=== PATIENT | female | born 1990 | race African-American/Black ===

== ENCOUNTER 2021-06-18 08:27 | Emergency (ER) | payer SELFPAY ==
[2021-06-18] MEDS ORDERED: Lidocaine Viscous Sol 2% 15 ml UD Cup ONE (09:13)
[2021-06-18] MEDS ORDERED: Mag-Al Plus 1200 MG/1200 MG/120 MG/30 ML UDCUP ONE (09:13)
[2021-06-18 10:53] LABS: #Monocytes 0.2 10x3/uL (0.0-1.1); #Neutrophils 1.7 10x3/uL (1.5-8.4); %Basophils 0.6 % (0.0-2.0); %Eosinophils 0.6 % (0.0-6.0); %Lymphocytes 46.2 % (18.0-47.0); %Monocytes 6.4 % (0.0-10.0); %Neutrophils 46.2 % (40.0-75.0); Hemoglobin 11.5 g/dL (12.0-15.5); Mean Corpuscular HGB CONC 33.6 g/dL (32.0-36.0); Mean Corpuscular Hemoglobin 28.5 pg (27.0-33.0); Mean Corpuscular Volume 84.9 fl (81.6-98.3); Mean Platelet Volume 9.3 fl (7.4-10.4); Platelet Count 292 10x3/uL (150-450); RBC Distribution Width 12.1 % (11.5-14.5); Red Blood Cell (RBC) Count 4.03 10x6/uL (3.90-5.03); White Blood Cell (WBC) Count 3.6 10x3/uL (3.5-10.5)
[2021-06-18 11:11] LABS: ALT (SGPT) 15 U/L (8-55); AST (SGOT) 15 U/L (5-34); Albumin 3.7 g/dL (3.5-5.0); Alkaline Phosphatase 52 U/L (40-110); Anion Gap 11 mmol/L (10-20); BUN (Urea Nitrogen) 11 mg/dL (7.0-18.7); Bilirubin, Total 0.6 mg/dL (0.2-1.2); Calc. Creatinine Clearance 0 mL/min (70-130); Calcium 8.9 mg/dL (7.8-10.44); Carbon Dioxide 24 mmol/L (22-29); Chloride 106 mmol/L (98-107); Globulin 2.5 g/dL (2.4-3.5); Glucose 108 mg/dL (70-105); Protein, Total 6.2 g/dL (6.0-8.3); Sodium 137 mmol/L (136-145)
== END 2021-06-18 12:02 | disposition home or self-care (01) ==
LOC: CSHERS 08:27
DX: R07.89 Other chest pain (principal); E28.2 Polycystic ovarian syndrome
CPT/HCPCS: 71045; 80053; 83690; 84484; 85025; 93005

== ENCOUNTER 2021-09-26 17:20 | Emergency (ER) | payer SELFPAY ==
[2021-09-26] MEDS ORDERED: Ondansetron PF 4 MG/2 ML Vial ONE (18:26)
[2021-09-26 18:55] LABS: Anion Gap 13 mmol/L (10-20); BUN (Urea Nitrogen) 12 mg/dL (7.0-18.7); Calc. Creatinine Clearance 0 mL/min (70-130); Calcium 9.4 mg/dL (7.8-10.44); Carbon Dioxide 22 mmol/L (22-29); Chloride 104 mmol/L (98-107); Glucose 98 mg/dL (70-105); Sodium 135 mmol/L (136-145)
[2021-09-26 20:22] LABS: Bilirubin Neg (Negative); Blood, Urine Negative (Negative); Clarity Clear (Clear); Glucose, Urine (Dipstick) Normal (Negative); Ketone, Urine Negative (Negative); Leukocyte Negative (Negative); Nitrite Negative (Negative); Protein, Urine (Dipstick) Negative (Neg-Trace); Specific Gravity, Urine 1.015 (1.002-1.036); pH, Urine 6.5 (5.0-9.0)
[2021-09-26 20:25] LABS: Pregnancy Test - Urine (BHCG) Negative (Negative); Pregu Control Background? CLEAR/WHITE (CLR/WHITE); Pregu Control Bar Appear? YES (CONTROL BAR); Specific Gravity 1.015 (1.002-1.036)
[2021-09-27 21:58] LABS: SARS-CoV-2 PCR by NAA Not Detected (NotDetected)
== END 2021-09-26 20:54 | disposition home or self-care (01) ==
LOC: CSHERS 17:20
DX: E86.0 Dehydration (principal); R19.7 Diarrhea, unspecified; E28.2 Polycystic ovarian syndrome; Z20.822 Contact with and (suspected) exposure to COVID-19
CPT/HCPCS: 80048; 81003; 81025; 87804; 96374; J2405; U0003; U0005

== ENCOUNTER 2021-10-20 20:43 | Emergency (ER) | payer SELFPAY ==
[2021-10-20] MEDS ORDERED: Ketorolac Tromethamine 30 MG/ML VIAL ONE (22:27)
== END 2021-10-21 00:15 | disposition home or self-care (01) ==
LOC: CSHERS 20:43
DX: I82.611 Acute embolism and thrombosis of superficial veins of right upper extremity (principal)
CPT/HCPCS: 96372; J1885

== ENCOUNTER 2021-10-22 14:57 | Emergency (ER) | payer SELFPAY ==
[2021-10-22] MEDS ORDERED: Apixaban 5 MG TAB ONE (17:01)
== END 2021-10-22 17:00 | disposition home or self-care (01) ==
LOC: CSHERS 14:57
DX: I82.621 Acute embolism and thrombosis of deep veins of right upper extremity (principal); Z91.14 Patient's other noncompliance with medication regimen
CPT/HCPCS: 99283

== ENCOUNTER 2023-08-02 15:31 | Emergency (ER) | payer SELFPAY ==
[2023-08-02 17:29] LABS: SARS-CoV-2 NAA Rapid Test Not Detected (NotDetected)
== END 2023-08-02 17:22 | disposition left against medical advice (07) ==
LOC: CSHERS 15:31
DX: Z53.21 Procedure and treatment not carried out due to patient leaving prior to being seen by health care provider (principal)

== ENCOUNTER 2023-09-16 01:46 | Emergency (ER) | payer SELFPAY ==
[2023-09-16] MEDS ORDERED: Guaifenesin DM 100-10/5 ML UDCUP PO SCH (02:45)
[2023-09-16 03:40] LABS: SARS-CoV-2 NAA Rapid Test Not Detected (NotDetected)
== END 2023-09-16 04:00 | disposition home or self-care (01) ==
LOC: CSHERS 01:46
DX: J10.1 Influenza due to other identified influenza virus with other respiratory manifestations (principal); Z20.822 Contact with and (suspected) exposure to COVID-19
CPT/HCPCS: 99284

== ENCOUNTER 2023-10-12 20:31 | Emergency (ER) | payer SELFPAY ==
[2023-10-12] MEDS ORDERED: Boostrix 0.5 ML (Tdap) VIAL (>/=7 yrs of age) ONE (22:02)
== END 2023-10-12 22:33 | disposition home or self-care (01) ==
LOC: CSHERS 20:31
DX: S61.211A Laceration without foreign body of left index finger without damage to nail, initial encounter (principal); W27.2XXA Contact with scissors, initial encounter
CPT/HCPCS: 12001; 90471; 90715